=== PATIENT | male | born 1960 | race Caucasian/White ===

== ENCOUNTER 2024-10-02 19:26 | Emergency (ER) | payer SELFPAY ==
[2024-10-02] MEDS: Lidocaine 1% 10 ML MDV ONE (20:29)
[2024-10-02] MEDS: Lidocaine 1% 10 ML MDV INJECT ONE (21:09)
== END 2024-10-02 21:05 | disposition home or self-care (01) ==
LOC: JD.ED 19:26
DX: S61.215A Laceration without foreign body of left ring finger without damage to nail, initial encounter (principal); E03.9 Hypothyroidism, unspecified; Z79.890 Hormone replacement therapy; W22.8XXA Striking against or struck by other objects, initial encounter; Y93.89 Activity, other specified
CPT/HCPCS: 12001; 99282; J2003; 99283